=== PATIENT | female | born 1995 ===

== ENCOUNTER 2019-04-02 04:54 | Inpatient (IN) | payer BC ==
[2019-04-02] MEDS ORDERED: Tranexamic Acid 1,000 MG in Sodium Chloride 0.9% 100 ML IV PRN (19:36)
[2019-04-02] MEDS ORDERED: Sodium Chloride 0.9% 10 ML Syringe FLUSH PRN (19:36)
[2019-04-02] MEDS ORDERED: Terbutaline 1 MG/ML SDV SUBCUT PRN (19:36)
[2019-04-02] MEDS ORDERED: Methylergonovine 0.2 MG/1 ML Amp IM PRN (19:36)
[2019-04-02] MEDS ORDERED: Misoprostol 200 MCG Tab PO PRN (19:36)
[2019-04-02] MEDS ORDERED: Ondansetron 4 MG/2 ML SDV IV PRN (19:36)
[2019-04-02] MEDS ORDERED: Nalbuphine 10 MG/1 ML Vial IVPUSH PRN (19:36)
[2019-04-02] MEDS ORDERED: Water For Irrigation,Sterile 1,000 ML Container IRR PRN (19:36)
[2019-04-02] MEDS ORDERED: Sodium Chloride 0.9% 10 ML SDV IV PRN (19:36)
[2019-04-02] MEDS ORDERED: Lidocaine 1% 50 ML MDV INJECT PRN (19:36)
[2019-04-02] MEDS ORDERED: Carboprost Tromethamine 250 MCG/1 ML Amp IM PRN (19:36)
[2019-04-02] MEDS ORDERED: Oxytocin/0.9 % Sodium Chloride 30 UNIT/500 ML BAG IV SCH ×2 (19:45)
--- NOTE | 2019-04-02 20:45 | PCM.LDHP ---
L&D History of Present Illness - General Date of Service: 04/02/19 Admit Problem/Dx: Patient Status Order with Admit Dx/Problem 04/02/19 19:40 Patient Status [ADT] Routine Admission Diagnosis/Problem Admission Diagnosis/Problem -related examination 04/02/19 20:40 23yo EDC 03/24/2019 41 2/7wks, B+, RI, GBS neg, Active labor Source of Information: Patient History Limitations: Reports: No Limitations - History of Present Illness Timing/Duration: Reports: minutes: Location, : Reports: Abdomen, Lower back Quality: Reports: Pressure, Throbbing Severity: Moderate Improves with: Reports: None Worsens with: Reports: None Associated Symptoms: Reports: N - Related Data Allergies/Adverse Reactions: Allergies Allergy/AdvReac Type Severity Reaction Status Date / Time No Known Allergies Allergy Verified 04/02/19 12:23 Home Medications: Home Meds Tablet 1 tab PO DAILY 04/02/19 [History] H&P Review of Systems - Review of Systems: Review Of Systems: See Below General: Reports: No Symptoms HEENT: Reports: No Symptoms Pulmonary: Reports: No Symptoms Cardiovascular: Reports: No Symptoms Gastrointestinal: Reports: No Symptoms Genitourinary: Reports: No Symptoms Musculoskeletal: Reports: No Symptoms Skin: Reports: No Symptoms Psychiatric: Reports: No Symptoms Neurological: Reports: No Symptoms Hematologic/Lymphatic: Reports: No Symptoms Immunologic: Reports: No Symptoms L&D Exam - Exam Exam: See Below - Vital Signs Weight: 92.986 kg - OB Specific Contraction Intensity: Moderate Movement: Active Presentation: Vertex - Eduardo Score Eduardo Score Cervix Position: Midposition Eduardo Score Consistency: Medium Eduardo Score Effacement: >80% Eduardo Score Dilation: > 5 cm Eduardo Score 's Station: -2 Eduardo Score Total: 9 - Exam General: Alert, Oriented HEENT: Hearing Intact Lungs: Normal Respiratory Effort GI/Abdominal Exam: Soft, Non-Tender Rectal Exam: Deferred Genitourinary: Normal external exam, Normal speculum exam, Cervical dilitation Back Exam: Full Range of Motion Extremities: Normal Range of Motion, Non-Tender, No Pedal Edema Skin: Warm, Dry, Intact Neurological: Cranial Nerves Intact, Strength Equal Bilateral, Normal Gait, Normal Speech, Normal Tone, Sensation Intact Psychiatric: Alert, Normal Affect, Normal Mood - Patient Data Lab Results Last 24 hrs: Laboratory Results - last 24 hr 04/02/19 Range/Units 20:07 WBC 13.36 H (4.0-11.0) K/uL RBC 4.41 (4.30-5.90) M/uL Hgb 12.8 (12.0-16.0) g/dL Hct 38.6 (36.0-46.0) % MCV 87.5 (80.0-98.0) fL MCH 29.0 (27.0-32.0) pg MCHC 33.2 (31.0-37.0) g/dL RDW Std Deviation 46.3 (28.0-62.0) fl RDW Coeff of Layo 15 (11.0-15.0) % Plt Count 219 (150-400) K/uL MPV 11.80 (7.40-12.00) fL Nucleated RBC % 0.0 /100WBC Nucleated RBCs # 0 K/uL Result Diagrams: 04/02/19 20:07 - Problem List (1) Supervision of normal IUP (intrauterine ) in primigravida SNOMED Code(s): 81745986, 450143393, 562887871, 076354659 ICD Code: Z34.00 - ENCNTR FOR SUPRVSN OF NORMAL FIRST , UNSP TRIMESTER Status: Acute Priority: High Current Visit: Yes Qualifiers: Trimester: third trimester Qualified Code(s): Z34.03 - Encounter for supervision of normal first , third trimester (2) Post-dates SNOMED Code(s): 67013639 ICD Code: O48.0 - POST-TERM Status: Acute Priority: High Current Visit: Yes Problem List Initiated/Reviewed/Updated: Yes Orders Last 24hrs: Active Orders 24 hr Category Date Time Status Patient Status [ADT] Routine ADT 04/02/19 19:40 Active Bedrest Bathroom Privileges [RC] ASDIRECTED Care 04/02/19 19:40 Active Communication Order [RC] ASDIRECTED Care 04/02/19 19:40 Active Communication Order [RC] ASDIRECTED Care 04/02/19 19:40 Active Heart Tones [RC] CONTINUOUS Care 04/02/19 19:40 Active Non Stress Test [RC] PER UNIT ROUTINE Care 04/02/19 19:40 Active May Shower [RC] ASDIRECTED Care 04/02/19 19:40 Active Notify Provider [RC] PRN Care 04/02/19 19:40 Active Notify Provider [RC] PRN Care 04/02/19 19:40 Active Notify Provider [RC] STAT Care 04/02/19 19:40 Active Oxygen Therapy [RC] ASDIRECTED Care 04/02/19 19:40 Active Up ad Kayleigh [RC] ASDIRECTED Care 04/02/19 19:40 Active Vaginal Exam [RC] PRN Care 04/02/19 19:40 Active Vaginal Exam [RC] PRN Care 04/02/19 19:40 Active Vital Signs [RC] PER UNIT ROUTINE Care 04/02/19 19:40 Active Vital Signs [RC] PER UNIT ROUTINE Care 04/02/19 19:40 Active Regular Diet [DIET] Diet 04/03/19 Breakfast Active TYPE AND SCREEN [BBK] Routine Lab 04/02/19 20:07 Received Carboprost Tromethamine [Hemabate DS] Med 04/02/19 19:36 Active 250 mcg IM ASDIRECTED PRN Lactated Ringers [Ringers, Lactated] 1,000 ml Med 04/02/19 19:45 Active IV ASDIRECTED Lidocaine 1% [Xylocaine 1%] Med 04/02/19 19:36 Active 50 ml INJECT ONETIME PRN Methylergonovine [Methergine] Med 04/02/19 19:36 Active 0.2 mg IM ASDIRECTED PRN Nalbuphine [Nubain] Med 04/02/19 19:36 Active 10 mg IVPUSH ASDIRECTED PRN Ondansetron [Zofran] Med 04/02/19 19:36 Active 4 mg IV Q4H PRN Oxytocin/0.9 % Sodium Chloride [Oxytocin 30 Unit/500 ML Med 04/02/19 19:45 Active -NS] 30 unit in 500 ml IV TITRATE Oxytocin/0.9 % Sodium Chloride [Oxytocin 30 Unit/500 ML Med 04/02/19 19:45 Active -NS] 30 unit in 500 ml IV TITRATE Sodium Chloride 0.9% [Normal Saline] Med 04/02/19 19:36 Active 10 ml IV ASDIRECTED PRN Sodium Chloride 0.9% [Saline Flush] Med 04/02/19 19:36 Active 10 ml FLUSH ASDIRECTED PRN Terbutaline [Brethine] Med 04/02/19 19:36 Active 0.25 mg SUBCUT ASDIRECTED PRN Tranexamic Acid [Cyklokapron] 1,000 mg Med 04/02/19 19:36 Active Sodium Chloride 0.9% [Normal Saline] 100 ml IV ONETIME Water For Irrigation,Sterile [Sterile Water for Med 04/02/19 19:36 Active Irrigation] 1,000 ml IRR ASDIRECTED PRN miSOPROStol [Cytotec] Med 04/02/19 19:36 Active 200 mcg PO ONETIME PRN Scalp Electrode [WOMSER] Per Unit Routine Oth 04/02/19 19:40 Ordered Medication Administration Instruction [OM.PC] Q3H Oth 04/02/19 19:45 Ordered Peripheral IV Insertion Adult [OM.PC] Routine Oth 04/02/19 19:40 Ordered Resuscitation Status Routine Resus Stat 04/02/19 19:36 Ordered Medication Orders Carboprost Tromethamine (Hemabate Ds) 250 mcg IM ASDIRECTED PRN PRN Reason: Post Hemorrhage Lactated Ringer's (Ringers, Lactated) 1,000 mls @ 150 mls/hr IV ASDIRECTED MAGDALENA Oxytocin/Sodium Chloride (Oxytocin 30 Unit/500 Ml-Ns) 30 unit in 500 mls @ 999 mls/hr IV TITRATE MAGDALENA Oxytocin/Sodium Chloride (Oxytocin 30 Unit/500 Ml-Ns) 30 unit in 500 mls @ 2 mls/hr IV TITRATE MAGDALENA; Protocol Tranexamic Acid 1,000 mg/ (Sodium Chloride) 110 mls @ 660 mls/hr IV ONETIME PRN PRN Reason: Bleeding Lidocaine HCl (Xylocaine 1%) 50 ml INJECT ONETIME PRN PRN Reason: Laceration repair Methylergonovine Maleate (Methergine) 0.2 mg IM ASDIRECTED PRN PRN Reason: Post Hemorrhage Misoprostol (Cytotec) 200 mcg PO ONETIME PRN PRN Reason: Post Hemorrhage Nalbuphine HCl (Nubain) 10 mg IVPUSH ASDIRECTED PRN PRN Reason: Pain (severe 7-10) Ondansetron HCl (Zofran) 4 mg IV Q4H PRN PRN Reason: Nausea/Vomiting Sodium Chloride (Saline Flush) 10 ml FLUSH ASDIRECTED PRN PRN Reason: Keep Vein Open Sodium Chloride (Normal Saline) 10 ml IV ASDIRECTED PRN PRN Reason: IV Use Sterile Water (Sterile Water For Irrigation) 1,000 ml IRR ASDIRECTED PRN PRN Reason: delivery Terbutaline Sulfate (Brethine) 0.25 mg SUBCUT ASDIRECTED PRN PRN Reason: Tacysystole Assessment/Plan Comment:: Labor A: 23yo EDC 03/24/2019 41 2/7wks, B+, RI, GBS neg, Active labor P: Admit, epidural prn, anticipate . Dr Blue updated
[2019-04-02] MEDS: Lactated Ringers 1,000 ML IV SCH ×2 (22:00→23:02)
[2019-04-02] MEDS ORDERED: fentaNYL 100 MCG/2 ML SDV ONE (23:33)
--- NOTE | 2019-04-02 23:59 | PCM.PREANE ---
Preanesthetic Assessment - Anesthesia/Transfusion/Family Hx Anesthesia History: No Prior Anesthesia Family History of Anesthesia Reaction: No Transfusion History: Unknown Intubation History: Unknown - Review of Systems General: No Symptoms Pulmonary: No Symptoms Cardiovascular: No Symptoms Gastrointestinal: No Symptoms Neurological: No Symptoms Other: Reports: None - Physical Assessment Height: 5 ft 3 in Weight: 92.986 kg ASA Class: 2 Mental Status: Alert & Oriented x3 Airway Class: Mallampati = 2 Dentition: Reports: Normal Dentition Thyro-Mental Finger Breadths: 3 Mouth Opening Finger Breadths: 3 ROM/Head Extension: Full Lungs: Clear to Auscultation, Normal Respiratory Effort Cardiovascular: Regular Rate, Regular Rhythm - Lab Values: Laboratory Last Values WBC 13.36 K/uL (4.0-11.0) H 04/02/19 20:07 RBC 4.41 M/uL (4.30-5.90) 04/02/19 20:07 Hgb 12.8 g/dL (12.0-16.0) 04/02/19 20:07 Hct 38.6 % (36.0-46.0) 04/02/19 20:07 MCV 87.5 fL (80.0-98.0) 04/02/19 20:07 MCH 29.0 pg (27.0-32.0) 04/02/19 20:07 MCHC 33.2 g/dL (31.0-37.0) 04/02/19 20:07 RDW Std Deviation 46.3 fl (28.0-62.0) 04/02/19 20:07 RDW Coeff of Layo 15 % (11.0-15.0) 04/02/19 20:07 Plt Count 219 K/uL (150-400) 04/02/19 20:07 MPV 11.80 fL (7.40-12.00) 04/02/19 20:07 Nucleated RBC % 0.0 /100WBC 04/02/19 20:07 Nucleated RBCs # 0 K/uL 04/02/19 20:07 Blood Type B POSITIVE 04/02/19 20:07 Antibody Screen NEGATIVE 04/02/19 20:07 - Allergies Allergies/Adverse Reactions: Allergies Allergy/AdvReac Type Severity Reaction Status Date / Time No Known Allergies Allergy Verified 04/02/19 12:23 - Blood Blood Available: No - Anesthesia Plan Pre-Op Medication Ordered: None - Acknowledgements Anesthesia Type Planned: Epidural Pt an Appropriate Candidate for the Planned Anesthesia: Yes Alternatives and Risks of Anesthesia Discussed w Pt/Guardian: Yes Pt/Guardian Understands and Agrees with Anesthesia Plan: Yes PreAnesthesia Questionnaire - Past Health History Medical/Surgical History: Denies 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 USE Smoking Status *Q: Never Smoker Tobacco Use Within Last Twelve Months: No Second Hand Smoke Exposure: No Recreational Drug Use History: No - HOME MEDS Home Medications: Home Meds Tablet 1 tab PO DAILY 04/02/19 [History] - CURRENT (IN HOUSE) MEDS Current Meds: Current Medications Carboprost Tromethamine (Hemabate Ds) 250 mcg IM ASDIRECTED PRN PRN Reason: Post Hemorrhage Lactated Ringer's (Ringers, Lactated) 1,000 mls @ 150 mls/hr IV ASDIRECTED MAGDALENA Oxytocin/Sodium Chloride (Oxytocin 30 Unit/500 Ml-Ns) 30 unit in 500 mls @ 999 mls/hr IV TITRATE MAGDALENA Oxytocin/Sodium Chloride (Oxytocin 30 Unit/500 Ml-Ns) 30 unit in 500 mls @ 2 mls/hr IV TITRATE MAGDALENA; Protocol Tranexamic Acid 1,000 mg/ (Sodium Chloride) 110 mls @ 660 mls/hr IV ONETIME PRN PRN Reason: Bleeding Lidocaine HCl (Xylocaine 1%) 50 ml INJECT ONETIME PRN PRN Reason: Laceration repair Methylergonovine Maleate (Methergine) 0.2 mg IM ASDIRECTED PRN PRN Reason: Post Hemorrhage Misoprostol (Cytotec) 200 mcg PO ONETIME PRN PRN Reason: Post Hemorrhage Nalbuphine HCl (Nubain) 10 mg IVPUSH ASDIRECTED PRN PRN Reason: Pain (severe 7-10) Ondansetron HCl (Zofran) 4 mg IV Q4H PRN PRN Reason: Nausea/Vomiting Sodium Chloride (Saline Flush) 10 ml FLUSH ASDIRECTED PRN PRN Reason: Keep Vein Open Sodium Chloride (Normal Saline) 10 ml IV ASDIRECTED PRN PRN Reason: IV Use Sterile Water (Sterile Water For Irrigation) 1,000 ml IRR ASDIRECTED PRN PRN Reason: delivery Terbutaline Sulfate (Brethine) 0.25 mg SUBCUT ASDIRECTED PRN PRN Reason: Tacysystole Discontinued Medications Fentanyl (Sublimaze) Confirm Administered Dose 100 mcg .ROUTE .STK-MED ONE Stop: 04/02/19 23:34 Fentanyl/Bupivacaine HCl (Nooabqxx-Crjal-Ec 2 Mcg/Ml-0.125%) Confirm Administered Dose 100 mls @ as directed .ROUTE .STK-MED ONE Stop: 04/02/19 23:35
[2019-04-03] MEDS: Lactated Ringers 1,000 ML IV SCH (00:05)
--- NOTE | 2019-04-03 05:17 | PCM.DEL ---
L & D Note - General Info Date of Service: 04/03/19 Mother's Due Date: 03/24/19 - Delivery Note Labor: Spontaneous, Augmented by Oxytocin Delivery Outcome: Livebirth Infant Delivery Method: Spontaneous Vaginal Delivery-Single Infant Delivery Mode: Spontaneous Presentation: Vertex Nuchal Cord: Present Anesthesia Type: Epidural Amniotic Fluid Description: Meconium Stained Episiotomy Type: None Laceration: None Placenta: Intact, Spontaneous Cord: 3 Vessels Estimated Blood Loss: 250 Resuscitation Needed: No : Stimulated Score 1 min: 7 Score 5 min: 9 Second Stage Interventions: Reports: Pushing, Pulls Own Legs Back Delivery Comments (Free Text/Narrative):: of viable female, head delivered with good pushing, nuchal x1 reduced over head, shoulders and body followed easily. to mothers abd with stimulation spont cry. Pitocin to IVF, CC and cut. Cord blood collected. Placenta delivered grossly intact. Inspection noted intact perineum. EBL 250, APGARS 7/9 weight pending bonding. Mother and baby stable. Induction Criteria - Augmentation Estimated Pelvis: Reports: Adequate Weight Estimated:: Reports: AGA Reassuring Monitoring Strip: Yes Absence of Tachy Systole: Yes - General Info Date of Service: 04/03/19 Admission Dx/Problem (Free Text): Patient Status Order with Admit Dx/Problem 04/02/19 19:40 Patient Status [ADT] Routine Admission Diagnosis/Problem Admission Diagnosis/Problem -related examination 04/02/19 20:40 23yo EDC 03/24/2019 41 2/7wks, B+, RI, GBS neg, Active labor Functional Status: Reports: Pain Controlled - Review of Systems General: Reports: No Symptoms HEENT: Reports: No Symptoms Pulmonary: Reports: No Symptoms Cardiovascular: Reports: No Symptoms Gastrointestinal: Reports: No Symptoms Genitourinary: Reports: No Symptoms Musculoskeletal: Reports: No Symptoms Skin: Reports: No Symptoms Neurological: Reports: No Symptoms Psychiatric: Reports: No Symptoms - Patient Data Weight - Most Recent: 92.986 kg Lab Results Last 24 Hours: Laboratory Results - last 24 hr 04/02/19 04/02/19 Range/Units 20:07 20:07 WBC 13.36 H (4.0-11.0) K/uL RBC 4.41 (4.30-5.90) M/uL Hgb 12.8 (12.0-16.0) g/dL Hct 38.6 (36.0-46.0) % MCV 87.5 (80.0-98.0) fL MCH 29.0 (27.0-32.0) pg MCHC 33.2 (31.0-37.0) g/dL RDW Std Deviation 46.3 (28.0-62.0) fl RDW Coeff of Layo 15 (11.0-15.0) % Plt Count 219 (150-400) K/uL MPV 11.80 (7.40-12.00) fL Nucleated RBC % 0.0 /100WBC Nucleated RBCs # 0 K/uL Blood Type B POSITIVE Antibody Screen NEGATIVE Med Orders - Current: Current Medications Carboprost Tromethamine (Hemabate Ds) 250 mcg IM ASDIRECTED PRN PRN Reason: Post Hemorrhage Lactated Ringer's (Ringers, Lactated) 1,000 mls @ 150 mls/hr IV ASDIRECTED MAGDALENA Oxytocin/Sodium Chloride (Oxytocin 30 Unit/500 Ml-Ns) 30 unit in 500 mls @ 999 mls/hr IV TITRATE MAGDALENA Oxytocin/Sodium Chloride (Oxytocin 30 Unit/500 Ml-Ns) 30 unit in 500 mls @ 2 mls/hr IV TITRATE MAGDALENA; Protocol Tranexamic Acid 1,000 mg/ (Sodium Chloride) 110 mls @ 660 mls/hr IV ONETIME PRN PRN Reason: Bleeding Lidocaine HCl (Xylocaine 1%) 50 ml INJECT ONETIME PRN PRN Reason: Laceration repair Methylergonovine Maleate (Methergine) 0.2 mg IM ASDIRECTED PRN PRN Reason: Post Hemorrhage Misoprostol (Cytotec) 200 mcg PO ONETIME PRN PRN Reason: Post Hemorrhage Nalbuphine HCl (Nubain) 10 mg IVPUSH ASDIRECTED PRN PRN Reason: Pain (severe 7-10) Ondansetron HCl (Zofran) 4 mg IV Q4H PRN PRN Reason: Nausea/Vomiting Sodium Chloride (Saline Flush) 10 ml FLUSH ASDIRECTED PRN PRN Reason: Keep Vein Open Sodium Chloride (Normal Saline) 10 ml IV ASDIRECTED PRN PRN Reason: IV Use Sterile Water (Sterile Water For Irrigation) 1,000 ml IRR ASDIRECTED PRN PRN Reason: delivery Terbutaline Sulfate (Brethine) 0.25 mg SUBCUT ASDIRECTED PRN PRN Reason: Tacysystole Discontinued Medications Fentanyl (Sublimaze) Confirm Administered Dose 100 mcg .ROUTE .STK-MED ONE Stop: 04/02/19 23:34 Fentanyl/Bupivacaine HCl (Htgknzih-Libjp-Ex 2 Mcg/Ml-0.125%) Confirm Administered Dose 100 mls @ as directed .ROUTE .STK-MED ONE Stop: 04/02/19 23:35 - Exam General: Alert, Oriented Lungs: Normal Respiratory Effort GI/Abdominal Exam: Soft, Non-Tender (Female) Exam: Normal External Exam, Normal Bimanual Exam, Vaginal Bleeding. No: Vaginal Tears Back Exam: Normal Inspection Extremities: Normal Inspection, Non-Tender, Pedal Edema Skin: Warm, Dry, Intact Neurological: No New Focal Deficit, Normal Speech, Normal Tone, Strength Equal Bilateral Psy/Mental Status: Alert, Normal Affect, Normal Mood - Problem List & Annotations (1) Supervision of normal IUP (intrauterine ) in primigravida SNOMED Code(s): 75838843, 412480107, 209944244, 009991178 Code(s): Z34.00 - ENCNTR FOR SUPRVSN OF NORMAL FIRST , UNSP TRIMESTER Status: Acute Priority: High Current Visit: Yes Qualifiers: Trimester: third trimester Qualified Code(s): Z34.03 - Encounter for supervision of normal first , third trimester (2) Post-dates SNOMED Code(s): 14327931 Code(s): O48.0 - POST-TERM Status: Acute Priority: High Current Visit: Yes (3) (normal spontaneous vaginal delivery) SNOMED Code(s): 07987437, 236292608 Code(s): O80 - ENCOUNTER FOR FULL-TERM UNCOMPLICATED DELIVERY Status: Acute Priority: High Current Visit: Yes - Problem List Review Problem List Initiated/Reviewed/Updated: Yes - My Orders Last 24 Hours: My Active Orders 04/02/19 19:36 Carboprost Tromethamine [Hemabate DS] 250 mcg IM ASDIRECTED PRN Lidocaine 1% [Xylocaine 1%] 50 ml INJECT ONETIME PRN Methylergonovine [Methergine] 0.2 mg IM ASDIRECTED PRN Nalbuphine [Nubain] 10 mg IVPUSH ASDIRECTED PRN Ondansetron [Zofran] 4 mg IV Q4H PRN Sodium Chloride 0.9% [Normal Saline] 10 ml IV ASDIRECTED PRN Sodium Chloride 0.9% [Saline Flush] 10 ml FLUSH ASDIRECTED PRN Terbutaline [Brethine] 0.25 mg SUBCUT ASDIRECTED PRN Tranexamic Acid [Cyklokapron] 1,000 mg Sodium Chloride 0.9% [Normal Saline] 100 ml IV ONETIME Water For Irrigation,Sterile [Sterile Water for Irrigation] 1,000 ml IRR ASDIRECTED PRN miSOPROStol [Cytotec] 200 mcg PO ONETIME PRN Resuscitation Status Routine 04/02/19 19:40 Patient Status [ADT] Routine Bedrest Bathroom Privileges [RC] ASDIRECTED Communication Order [RC] ASDIRECTED Communication Order [RC] ASDIRECTED Heart Tones [RC] CONTINUOUS Non Stress Test [RC] PER UNIT ROUTINE May Shower [RC] ASDIRECTED Notify Provider [RC] PRN Notify Provider [RC] PRN Notify Provider [RC] STAT Oxygen Therapy [RC] ASDIRECTED Up ad Kayleigh [RC] ASDIRECTED Vaginal Exam [RC] PRN Vaginal Exam [RC] PRN Vital Signs [RC] PER UNIT ROUTINE Vital Signs [RC] PER UNIT ROUTINE Scalp Electrode [WOMSER] Per Unit Routine Peripheral IV Insertion Adult [OM.PC] Routine 04/02/19 19:45 Lactated Ringers [Ringers, Lactated] 1,000 ml IV ASDIRECTED Oxytocin/0.9 % Sodium Chloride [Oxytocin 30 Unit/500 ML-NS] 30 unit in 500 ml IV TITRATE Oxytocin/0.9 % Sodium Chloride [Oxytocin 30 Unit/500 ML-NS] 30 unit in 500 ml IV TITRATE Medication Administration Instruction [OM.PC] Q3H 04/03/19 Breakfast Regular Diet [DIET] - Plan Plan:: Labor A: 23yo EDC 03/24/2019 41 2/7wks, B+, RI, GBS neg, Active labor P: Admit, epidural prn, anticipate . Dr Blue updated Delivery A: of girl, APGARS 7/9, wt pending bonding. Intact perineum, EBL 250cc. Mother and baby bonding well both stable P: Routine pp plan of care.
[2019-04-03] MEDS ORDERED: Acetaminophen 500 MG Tab PO PRN (05:22)
[2019-04-03] MEDS ORDERED: Benzocaine/Menthol 20%-0.5% Spray 78 GM Cannister TOP PRN (05:22)
[2019-04-03] MEDS ORDERED: Witch Hazel Medicated Pads 40/Jar TOP PRN (05:22)
[2019-04-03] MEDS ORDERED: Ibuprofen 400 MG Tab PO PRN (05:22)
[2019-04-03] MEDS ORDERED: oxyCODONE 5 MG Tab PO PRN (05:22)
[2019-04-03] MEDS ORDERED: Bisacodyl 10 MG Supp RECTAL PRN (05:22)
[2019-04-03] MEDS ORDERED: Docusate Sodium 100 MG Cap PO PRN (05:22)
[2019-04-03] MEDS ORDERED: Lanolin 100% Cream 7 GM Tube TOP PRN (05:22)
--- NOTE | 2019-04-03 08:21 | PCM48HPAN ---
Post Anesthesia Note - EVALUATION WITHIN 48HRS OF ANESTHETIC Vital Signs in Normal Range: Yes Patient Participated in Evaluation: Yes Respiratory Function Stable: Yes Airway Patent: Yes Cardiovascular Function Stable: Yes Hydration Status Stable: Yes Pain Control Satisfactory: Yes Nausea and Vomiting Control Satisfactory: Yes Mental Status Recovered: Yes - COMMENTS/OBSERVATIONS Free Text/Narrative:: Patient doing well without complaints
[2019-04-03] MEDS: Ibuprofen 800 MG Tab PO PRN (15:15)
[2019-04-03] MEDS: Acetaminophen 500 MG Tab PO PRN (15:16)
[2019-04-04] MEDS: Ibuprofen 800 MG Tab PO PRN (07:40)
[2019-04-04] MEDS: Acetaminophen 500 MG Tab PO PRN (07:40)
--- NOTE | 2019-04-04 08:38 | PCM.DCSUM1 ---
Discharge Summary - Hospital Course Free Text/Narrative:: Discharge home with . Follow up in 6 weeks for visit. Diagnosis: Stroke: No - Discharge Data Discharge Date: 04/04/19 Discharge Disposition: Home, Self-Care 01 Condition: Good - Discharge Diagnosis/Problem(s) (1) Supervision of normal IUP (intrauterine ) in primigravida SNOMED Code(s): 10260109, 606916136, 179094958, 676446720 ICD Code: Z34.00 - ENCNTR FOR SUPRVSN OF NORMAL FIRST , UNSP TRIMESTER Status: Acute Priority: High Current Visit: Yes Qualifiers: Trimester: third trimester Qualified Code(s): Z34.03 - Encounter for supervision of normal first , third trimester (2) Post-dates SNOMED Code(s): 20716256 ICD Code: O48.0 - POST-TERM Status: Acute Priority: High Current Visit: Yes (3) (normal spontaneous vaginal delivery) SNOMED Code(s): 10186641, 517306420 ICD Code: O80 - ENCOUNTER FOR FULL-TERM UNCOMPLICATED DELIVERY Status: Acute Priority: High Current Visit: Yes - Patient Instructions Diet: Usual Diet as Tolerated Activity: As Tolerated Driving: May Drive Today Showering/Bathing: May Shower Notify Provider of: Fever, Increased Pain, Swelling and Redness, Nausea and/or Vomiting Other/Special Instructions: Discharge home with . Follow up in 6 weeks for visit. - Discharge Plan *PRESCRIPTION DRUG MONITORING PROGRAM REVIEWED*: Not Applicable *COPY OF PRESCRIPTION DRUG MONITORING REPORT IN PATIENT NILES: Not Applicable Prescriptions/Med Rec: Ibuprofen [Motrin] 800 mg PO Q6H PRN #90 tablet PRN Reason: Pain Home Medications: Home Meds Tablet 1 tab PO DAILY 04/02/19 [History] Ibuprofen [Motrin] 800 mg PO Q6H PRN #90 tablet 04/04/19 [Rx] Oxygen Therapy Mode: Room Air Referrals: [facility] [Outside] Caitlyn Duran CNM [Mid-] - 05/14/19 10:45 am - Discharge Summary/Plan Comment DC Time >30 min.: Yes - General Info Date of Service: 04/04/19 Admission Dx/Problem (Free Text: Patient Status Order with Admit Dx/Problem 04/02/19 19:40 Patient Status [ADT] Routine Admission Diagnosis/Problem Admission Diagnosis/Problem -related examination 04/02/19 20:40 23yo EDC 03/24/2019 41 2/7wks, B+, RI, GBS neg, Active labor Functional Status: Reports: Pain Controlled, Tolerating Diet, Ambulating, Urinating - Review of Systems General: Reports: No Symptoms HEENT: Reports: No Symptoms Pulmonary: Reports: No Symptoms Cardiovascular: Reports: No Symptoms Gastrointestinal: Reports: No Symptoms Genitourinary: Reports: No Symptoms Musculoskeletal: Reports: No Symptoms Skin: Reports: No Symptoms Neurological: Reports: No Symptoms Psychiatric: Reports: No Symptoms - Patient Data Vitals - Most Recent: Last Vital Signs Temp 37.2 C 04/04/19 07:15 Pulse 78 04/04/19 07:15 Resp 16 04/04/19 07:15 BP 97/58 L 04/04/19 07:15 Pulse Ox 96 04/04/19 07:15 Weight - Most Recent: 92.986 kg Med Orders - Current: Current Medications Acetaminophen (Tylenol Extra Strength) 500 mg PO Q4H PRN PRN Reason: Pain Acetaminophen (Tylenol Extra Strength) 1,000 mg PO Q4H PRN PRN Reason: Pain Last Admin: 04/04/19 07:40 Dose: 1,000 mg Benzocaine/Menthol (Dermoplast Pain Relief 20%-0.5% [place]) 78 gm TOP ASDIRECTED PRN PRN Reason: Perineal Comfort Measure Last Admin: 04/03/19 06:56 Dose: 1 canister Bisacodyl (Dulcolax) 10 mg RECTAL ONETIME PRN PRN Reason: Constipation Docusate Sodium (Colace) 100 mg PO BID PRN PRN Reason: Constipation Emollient Ointment (Lansinoh Hpa) 0 gm TOP ASDIRECTED PRN PRN Reason: Sore Nipples Last Admin: 04/03/19 06:55 Dose: 7 gm Ibuprofen (Motrin) 400 mg PO Q4H PRN PRN Reason: Pain Ibuprofen (Motrin) 800 mg PO Q6H PRN PRN Reason: Pain Last Admin: 04/04/19 07:40 Dose: 800 mg Oxycodone HCl (Oxycodone) 5 mg PO Q2H PRN PRN Reason: Pain Witch Marcy (Tucks) 1 pad TOP ASDIRECTED PRN PRN Reason: comfort care Last Admin: 04/03/19 06:55 Dose: 1 tub Discontinued Medications Carboprost Tromethamine (Hemabate Ds) 250 mcg IM ASDIRECTED PRN PRN Reason: Post Hemorrhage Fentanyl (Sublimaze) Confirm Administered Dose 100 mcg .ROUTE .[employer]-REES46 ONE Stop: 04/02/19 23:34 Lactated Ringer's (Ringers, Lactated) 1,000 mls @ 150 mls/hr IV ASDIRECTED [facility] Last Admin: 04/03/19 00:05 Dose: 150 mls/hr Oxytocin/Sodium Chloride (Oxytocin 30 Unit/500 Ml-Ns) 30 unit in 500 mls @ 999 mls/hr IV TITRATE [facility] Oxytocin/Sodium Chloride (Oxytocin 30 Unit/500 Ml-Ns) 30 unit in 500 mls @ 2 mls/hr IV TITRATE [facility]; Protocol Last Titration: 04/03/19 04:55 Dose: 999 munits/min, 999 mls/hr Tranexamic Acid 1,000 mg/ (Sodium Chloride) 110 mls @ 660 mls/hr IV ONETIME PRN PRN Reason: Bleeding Fentanyl/Bupivacaine HCl (Xhelqolh-Nkrfy-Ts 2 Mcg/Ml-0.125%) Confirm Administered Dose 100 mls @ as directed .ROUTE .[employer] ONE Stop: 04/02/19 23:35 Lidocaine HCl (Xylocaine 1%) 50 ml INJECT ONETIME PRN PRN Reason: Laceration repair Methylergonovine Maleate (Methergine) 0.2 mg IM ASDIRECTED PRN PRN Reason: Post Hemorrhage Misoprostol (Cytotec) 200 mcg PO ONETIME PRN PRN Reason: Post Hemorrhage Nalbuphine HCl (Nubain) 10 mg IVPUSH ASDIRECTED PRN PRN Reason: Pain (severe 7-10) Ondansetron HCl (Zofran) 4 mg IV Q4H PRN PRN Reason: Nausea/Vomiting Sodium Chloride (Saline Flush) 10 ml FLUSH ASDIRECTED PRN PRN Reason: Keep Vein Open Sodium Chloride (Normal Saline) 10 ml IV ASDIRECTED PRN PRN Reason: IV Use Sterile Water (Sterile Water For Irrigation) 1,000 ml IRR ASDIRECTED PRN PRN Reason: delivery Terbutaline Sulfate (Brethine) 0.25 mg SUBCUT ASDIRECTED PRN PRN Reason: Tacysystole - Exam General: Reports: Alert, Oriented, Cooperative, No Acute Distress, Mild Distress Lungs: Reports: Clear to Auscultation, Normal Respiratory Effort. Denies: Decreased Breath Sounds Cardiovascular: Reports: Regular Rate, Regular Rhythm. Denies: No Murmurs GI/Abdominal Exam: Soft, Non-Tender, No Distention, Pelvis Stable (Female) Exam: Deferred Rectal (Female) Exam: Deferred Back Exam: Reports: Normal Inspection, Full Range of Motion Extremities: Normal Inspection, Normal Range of Motion, Non-Tender, No Pedal Edema Skin: Reports: Warm, Dry, Intact Neurological: Reports: No New Focal Deficit, Normal Speech, Normal Tone, Strength Equal Bilateral Psy/Mental Status: Reports: Alert, Normal Affect, Normal Mood
== END 2019-04-04 14:00 | disposition home or self-care (01) | DRG 560 ==
LOC: MW.OB 04:54 → OBSVTOIN 04-03 04:54 → MW.OB 04-03 13:47
PROVIDERS: ADMIT Obstetrics & Gynecology; ATTEND Obstetrics & Gynecology
PROC: 10E0XZZ Delivery of Products of Conception, External Approach (ICD-10-PCS; principal; 2019-04-03)
DX: O48.0 Post-term pregnancy (principal); O77.0 Labor and delivery complicated by meconium in amniotic fluid; O69.81X0 Labor and delivery complicated by cord around neck, without compression, not applicable or unspecified; Z3A.41 41 weeks gestation of pregnancy; Z37.0 Single live birth
CPT/HCPCS: 36415; 51702; 59025; 59409; 85027; 86850; 86900; 86901; A9270-GY; J2590; J7120

== ENCOUNTER 2021-07-26 15:54 | Inpatient (IN) | payer BC ==
[2021-07-26] MEDS ORDERED: Water For Irrigation,Sterile 1,000 ML Container IRR PRN (16:44)
[2021-07-26] MEDS ORDERED: Carboprost Tromethamine 250 MCG/1 ML Amp IM PRN (16:44)
[2021-07-26] MEDS ORDERED: Butorphanol 1 MG/ML SDV IVPUSH PRN (16:44)
[2021-07-26] MEDS ORDERED: Ondansetron 4 MG/2 ML SDV IVPUSH PRN (16:44)
[2021-07-26] MEDS ORDERED: Sodium Chloride 0.9% 10 ML SDV IV PRN (16:44)
[2021-07-26] MEDS ORDERED: Methylergonovine 0.2 MG/1 ML Amp IM PRN (16:44)
[2021-07-26] MEDS ORDERED: Misoprostol 200 MCG Tab PO PRN (16:44)
[2021-07-26] MEDS ORDERED: Sodium Chloride 0.9% 10 ML Syringe FLUSH PRN (16:44)
[2021-07-26] MEDS ORDERED: Tranexamic Acid 1,000 MG in Sodium Chloride 0.9% 100 ML IV PRN (16:44)
[2021-07-26] MEDS ORDERED: Sodium Chloride 0.9% 2.5 ML Syringe FLUSH PRN (16:44)
[2021-07-26] MEDS ORDERED: Lidocaine 1% 50 ML MDV INJECT PRN (16:44)
[2021-07-26] MEDS ORDERED: Oxytocin/0.9 % Sodium Chloride 30 UNIT/500 ML BAG IV SCH (16:45)
[2021-07-26] MEDS: Lactated Ringers 1,000 ML IV SCH (18:14)
[2021-07-27] MEDS ORDERED: Ropivacaine HCl/PF 200 ML ONE (00:26)
[2021-07-27] MEDS: Lactated Ringers 1,000 ML IV SCH (01:00)
--- NOTE | 2021-07-27 01:00 | PCM.POSTAN ---
POST ANESTHESIA ASSESSMENT - MENTAL STATUS Mental Status: Alert, Oriented - RESPIRATORY Respiratory Status: Respiratory Rate WNL, Airway Patent, O2 Saturation Stable - CARDIOVASCULAR CV Status: Pulse Rate WNL, Blood Pressure Stable - GASTROINTESTINAL GI Status: No Symptoms - POST OP HYDRATION Hydration Status: Adequate & Stable
--- NOTE | 2021-07-27 01:00 | PCM.PREANE ---
Preanesthetic Assessment - Anesthesia/Transfusion/Family Hx Anesthesia History: Prior Anesthesia Reaction Other Type of Anesthesia Reaction Comment: bradycardia Family History of Anesthesia Reaction: No Transfusion History: No Prior Transfusion(s) Intubation History: Unknown - Review of Systems General: No Symptoms Pulmonary: No Symptoms Cardiovascular: No Symptoms Gastrointestinal: No Symptoms Neurological: No Symptoms Other: Reports: None - Physical Assessment Height: 5 ft 3 in Weight: 180 lb ASA Class: 2 Mental Status: Alert & Oriented x3 Dentition: Reports: Normal Dentition ROM/Head Extension: Full Lungs: Clear to Auscultation, Normal Respiratory Effort Cardiovascular: Regular Rate, Regular Rhythm - Lab Values: Laboratory Last Values WBC 10.25 K/uL (4.0-11.0) 07/26/21 17:32 RBC 4.31 M/uL (4.30-5.90) 07/26/21 17:32 Hgb 12.7 g/dL (12.0-16.0) 07/26/21 17:32 Hct 37.5 % (36.0-46.0) 07/26/21 17:32 MCV 87.0 fL (80.0-98.0) 07/26/21 17:32 MCH 29.5 pg (27.0-32.0) 07/26/21 17:32 MCHC 33.9 g/dL (31.0-37.0) 07/26/21 17:32 RDW Std Deviation 45.8 fl (28.0-62.0) 07/26/21 17:32 RDW Coeff of Layo 15 % (11.0-15.0) 07/26/21 17:32 Plt Count 207 K/uL (150-400) 07/26/21 17:32 MPV 11.70 fL (7.40-12.00) 07/26/21 17:32 Nucleated RBC % 0.0 /100WBC 07/26/21 17:32 Nucleated RBCs # 0 K/uL 07/26/21 17:32 SARS-CoV-2 RNA (EDILMA) NEGATIVE (NEGATIVE) 07/26/21 17:15 Blood Type B POSITIVE 07/26/21 17:32 Antibody Screen NEGATIVE 07/26/21 17:32 - Allergies Allergies/Adverse Reactions: Allergies Allergy/AdvReac Type Severity Reaction Status Date / Time No Known Allergies Allergy Verified 04/02/19 12:23 - Blood Blood Available: Yes Product(s) Available: PRBC, FFP, Platelets - Anesthesia Plan Pre-Op Medication Ordered: None - Acknowledgements Anesthesia Type Planned: Epidural Pt an Appropriate Candidate for the Planned Anesthesia: Yes Alternatives and Risks of Anesthesia Discussed w Pt/Guardian: Yes Pt/Guardian Understands and Agrees with Anesthesia Plan: Yes PreAnesthesia Questionnaire - Past Health History Medical/Surgical History: Denies Medical/Surgical History [employer] History: Reports: - SUBSTANCE USE Tobacco Use Status *Q: Never Tobacco User Tobacco Use Within Last Twelve Months: No Recreational Drug Use History: No - HOME MEDS Home Medications: Home Meds Tablet 1 tab PO DAILY 04/02/19 [History] Ibuprofen [Motrin] 800 mg PO Q6H PRN #90 tablet 04/04/19 [Rx] - CURRENT (IN HOUSE) MEDS Current Meds: Current Medications Butorphanol Tartrate (Butorphanol 1 Mg/Ml Sdv) 1 mg IVPUSH Q1H PRN PRN Reason: Pain (severe 7-10) Carboprost Tromethamine (Carboprost Tromethamine 250 Mcg/1 Ml Amp) 250 mcg IM ASDIRECTED PRN PRN Reason: Post Hemorrhage Lactated Ringer's (Ringers, Lactated) 1,000 mls @ 150 mls/hr IV ASDIRECTED [facility] Last Admin: 07/26/21 18:14 Dose: 150 mls/hr Documented by: Oxytocin/Sodium Chloride (Oxytocin 30 Unit In Ns 0.9% 500 Ml Premix) 30 unit in 500 mls @ 999 mls/hr IV TITRATE [facility] Tranexamic Acid 1,000 mg/ (Sodium Chloride) 110 mls @ 660 mls/hr IV ONETIME PRN PRN Reason: Bleeding Lidocaine HCl (Lidocaine 1% 50 Ml Mdv) 50 ml INJECT ONETIME PRN PRN Reason: Laceration repair Methylergonovine Maleate (Methylergonovine 0.2 Mg/1 Ml Amp) 0.2 mg IM ASDIRECTED PRN PRN Reason: Post Hemorrhage Misoprostol (Misoprostol 200 Mcg Tab) 200 mcg PO ONETIME PRN PRN Reason: Post Hemorrhage Ondansetron HCl (Ondansetron 4 Mg/2 Ml Sdv) 4 mg IVPUSH Q6H PRN PRN Reason: Nausea/Vomiting Sodium Chloride (Sodium Chloride 0.9% 10 Ml Syringe) 10 ml FLUSH ASDIRECTED PRN PRN Reason: Keep Vein Open Sodium Chloride (Sodium Chloride 0.9% 2.5 Ml Syringe) 2.5 ml FLUSH ASDIRECTED PRN PRN Reason: Keep Vein Open Sodium Chloride (Sodium Chloride 0.9% 10 Ml Sdv) 10 ml IV ASDIRECTED PRN PRN Reason: IV Use Sterile Water (Water For Irrigation,Sterile 1,000 Ml Container) 1,000 ml IRR ASDIRECTED PRN PRN Reason: delivery Discontinued Medications Ropivacaine (Naropin 0.2%) Confirm Administered Dose 200 mls @ as directed .ROUTE .[facility]-MED ONE Stop: 07/27/21 00:27 - Pre-Procedure Checklist Attending Provider Aware: Yes Chart Reviewed: Yes Consent Signed: Yes Labs Reviewed: Yes VS/FHR Reviewed: Yes Patient Identification Confirmation Method: Reports: Verbal Patient Pt an Appropriate Candidate for the Planned Anesthesia: Yes Alternatives and Risks of Anesthesia Discussed w Pt/Guardian: Yes - Procedure Procedure Start Date: 07/27/21 Procedure Start Time: 00:[address]: Reports: Blood Pressure, Heart Rate, SPO2 Functional IV: Yes Safety Measures: Reports: Patient Identified, Procedure Verified, Site Verified, Procedure Time Out Patient Position: Reports: Sitting Prep: Reports: Betadine x3, Sterile Drape Local Anesthetic: Reports: Intradermal Wheal w Lidocaine 1% Regional Placement Level: Reports: L3-4 Needle: Reports: 17 g Touhy Approach: Reports: Midline Technique: Reports: CONG Plastic Syringe Parasthesia: Reports: None Fluid Obtained: Reports: None Test Dose Time: 00:39 Test Dose Medication: Reports: Lidocaine 1.5% w Epinephrine 1:200,000 Test Dose Response: Reports: Negative Loading Dose Time: 00:39 Loading Dose Medication: bupivicaine 0.25% 10cc Loading Dose Patient Position: sitting Continuous Infusion Start Time: 00:40 Continuous Infusion Medication: ropivicaine 0.2% Continuous Infusion Rate: 16 Continuous Infusion PCS Bolus Option: 4 Patient Position Post Placement: Reports: Supline/TRAVIS VS and FHR Monitored in Unit Post Placement: Yes Procedure End Date: 07/27/21 Procedure End Time: 01:32
[2021-07-27] MEDS ORDERED: Acetaminophen 500 MG Tab PO PRN ×2 (07:07)
[2021-07-27] MEDS ORDERED: Lanolin 100% Cream 7 GM Tube TOP PRN (07:07)
[2021-07-27] MEDS ORDERED: Ibuprofen 400 MG Tab PO PRN (07:07)
[2021-07-27] MEDS ORDERED: oxyCODONE 5 MG Tab PO PRN (07:07)
[2021-07-27] MEDS ORDERED: Bisacodyl 10 MG Supp RECTAL PRN (07:07)
[2021-07-27] MEDS ORDERED: Docusate Sodium 100 MG Cap PO PRN (07:07)
--- NOTE | 2021-07-27 07:14 | PCM.OPNOTE ---
- General Post-Op/Procedure Note Date of Surgery/Procedure: 07/27/21 Operative Procedure(s): /IP Findings: Viable male APGARs 8, 9 weight pending. Spontaneous delivery intact placenta with 3 V cord Pre Op Diagnosis: 41 week IUP. Labor Post-Op Diagnosis: Same Anesthesia Technique: Epidural Primary Surgeon: Kathy Ortega EBL in mLs: 250 Complications: none known Condition: Good Free Text/Narrative:: Dictation [id number]
--- NOTE | 2021-07-27 08:00 | OR ---
SURGEON: Kathy Ortega M.D. DATE OF PROCEDURE: 07/27/2021 PREOPERATIVE DIAGNOSES: 1. A 41-week intrauterine . 2. Active labor. POSTOPERATIVE DIAGNOSES: 1. A 41-week intrauterine . 2. Active labor. PROCEDURE: Spontaneous vaginal delivery, intact perineum. ANESTHESIA: Epidural. ESTIMATED BLOOD LOSS: 250 mL. COMPLICATIONS: None known. FINDINGS: Viable male, score 8 at 1 minute and 9 at 5 minute. Weight is pending. Spontaneous delivery, intact placenta, 3-vessel cord. DISPOSITION: to nursery, mom in LDRP. PROCEDURE IN DETAIL: The patient is a 26-year-old, G2, P1, at 40 and 6-week gestational age, who presented on the evening of 07/26/2021 with contractions. On initial examination, she was found to be 3 to 4 cm, 60% effaced, -3 station. She was admitted by Dr. Dueñas and I assumed care for the evening shortly after 5 p.m. heart tones were category 1. The patient was monitored, offered amniotomy. She declined this. Continue to contract the evening hours and minimal cervical change until approximately midnight and then began progressing into active labor. She had spontaneous rupture of membranes when she was 6 cm. Clear fluid was noted. She underwent regional anesthesia in the form of epidural, became more comfortable, and progressed to complete. She began pushing efforts, pushed readily to a + station was called for delivery. Upon my arrival, the patient was placed in modified dorsal lithotomy position, prepped and draped in the usual aseptic manner. Continued with pushing efforts, was able to deliver infant's head atraumatically spontaneously, followed by anterior shoulder posterior shoulder, and remainder of the body without difficulty. There was light meconium amniotic fluid noted. The 's oropharynx and nares were bulb suctioned. Infant was handed off to his mother attending nursery staff at the side. After a delay, cord was clamped x2 and cut. Cord arterial, cord venous, and cord blood sampling were obtained. Light pressure was applied while the placenta was delivered spontaneously intact. Vigorous fundal and uterine massage was then applied with 30 units of Pitocin and it was delivered with 500 mL of IV fluid. Upon inspection of the cervix, vaginal sidewall, and perineum, these were found to be intact. Uterus remained firm. Sponge count and instrument count were correct. The patient remained in LDRP and infant to nursery. LETICIA / RUDOLPH /[id number]
[2021-07-27] MEDS: Benzocaine/Menthol 20%-0.5% Spray 78 GM Cannister TOP PRN (11:12)
[2021-07-27] MEDS: Witch Hazel Medicated Pads 40/Jar TOP PRN (11:13)
[2021-07-27] MEDS: Ibuprofen 800 MG Tab PO PRN (11:14)
[2021-07-28] MEDS: Ibuprofen 800 MG Tab PO PRN (02:00)
--- NOTE | 2021-07-28 08:28 | PCM.PNPP ---
- General Info Date of Service: 07/28/21 Subjective Update: Minimal-moderate lochia, cramping with . Denies fevers/chills. Functional Status: Reports: Pain Controlled, Tolerating Diet, Ambulating, Urinating - Review of Systems General: Reports: No Symptoms HEENT: Reports: No Symptoms Pulmonary: Reports: No Symptoms Cardiovascular: Reports: No Symptoms Gastrointestinal: Reports: No Symptoms Genitourinary: Reports: No Symptoms Musculoskeletal: Reports: No Symptoms Skin: Reports: No Symptoms Neurological: Reports: No Symptoms Psychiatric: Reports: No Symptoms - Patient Data Vital Signs - Most Recent: Last Vital Signs Temp 36.7 C 07/28/21 08:00 Pulse 78 07/28/21 08:00 Resp 18 07/28/21 08:00 BP 103/56 L 07/28/21 08:00 Pulse Ox 97 07/28/21 08:00 Weight - Most Recent: 81.647 kg Lab Results - Last 24 Hours: Laboratory Results - last 24 hr 07/27/21 07/28/21 Range/Units 06:48 05:28 Hgb 11.2 L (12.0-16.0) g/dL Hct 34.2 L (36.0-46.0) % Cord ABG pH 7.284 (7.18-7.38) Cord ABG Base Excess -2 (-10--2) Med Orders - Current: Current Medications Acetaminophen (Acetaminophen 500 Mg Tab) 500 mg PO Q4H PRN PRN Reason: Pain (mild 1-3) Acetaminophen (Acetaminophen 500 Mg Tab) 1,000 mg PO Q4H PRN PRN Reason: Pain (mild 1-3) Last Admin: 07/27/21 16:45 Dose: 1,000 mg Documented by: Benzocaine/Menthol (Benzocaine/Menthol 20%-0.5% [place] 78 Gm Cannister) 78 gm TOP ASDIRECTED PRN PRN Reason: Perineal Comfort Measure Last Admin: 07/27/21 11:12 Dose: 1 canister Documented by: Bisacodyl (Bisacodyl 10 Mg Supp) 10 mg RECTAL ONETIME PRN PRN Reason: Constipation Docusate Sodium (Docusate Sodium 100 Mg Cap) 100 mg PO Q12H PRN PRN Reason: Constipation Last Admin: 07/27/21 11:14 Dose: 100 mg Documented by: Emollient Ointment (Lanolin 100% Cream 7 Gm Tube) 0 gm TOP ASDIRECTED PRN PRN Reason: Sore Nipples Last Admin: 07/27/21 11:15 Dose: 1 tube Documented by: Lactated Ringer's (Ringers, Lactated) 1,000 mls @ 150 mls/hr IV ASDIRECTED [facility] Last Admin: 07/27/21 01:00 Dose: 150 mls/hr Documented by: Oxytocin/Sodium Chloride (Oxytocin 30 Unit In Ns 0.9% 500 Ml Premix) 30 unit in 500 mls @ 999 mls/hr IV TITRATE [facility] Last Admin: 07/27/21 06:50 Dose: 500 mls/hr Documented by: Tranexamic Acid 1,000 mg/ (Sodium Chloride) 110 mls @ 660 mls/hr IV ONETIME PRN PRN Reason: Bleeding Ibuprofen (Ibuprofen 400 Mg Tab) 400 mg PO Q4H PRN PRN Reason: Pain (mild 1-3) Ibuprofen (Ibuprofen 800 Mg Tab) 800 mg PO Q6H PRN PRN Reason: Cramping Last Admin: 07/28/21 02:00 Dose: 800 mg Documented by: Methylergonovine Maleate (Methylergonovine 0.2 Mg/1 Ml Amp) 0.2 mg IM ASDIRECTED PRN PRN Reason: Post Hemorrhage Ondansetron HCl (Ondansetron 4 Mg/2 Ml Sdv) 4 mg IVPUSH Q6H PRN PRN Reason: Nausea/Vomiting Oxycodone HCl (Oxycodone 5 Mg Tab) 5 mg PO Q2H PRN PRN Reason: Pain (severe 7-10) Sodium Chloride (Sodium Chloride 0.9% 10 Ml Syringe) 10 ml FLUSH ASDIRECTED PRN PRN Reason: Keep Vein Open Sodium Chloride (Sodium Chloride 0.9% 2.5 Ml Syringe) 2.5 ml FLUSH ASDIRECTED PRN PRN Reason: Keep Vein Open Sodium Chloride (Sodium Chloride 0.9% 10 Ml Sdv) 10 ml IV ASDIRECTED PRN PRN Reason: IV Use Sterile Water (Water For Irrigation,Sterile 1,000 Ml Container) 1,000 ml IRR ASDIRECTED PRN PRN Reason: delivery Witch Marcy (Witch Marcy Medicated Pads 40/Jar) 1 pad TOP ASDIRECTED PRN PRN Reason: comfort care Last Admin: 07/27/21 11:13 Dose: 1 tub Documented by: Discontinued Medications Butorphanol Tartrate (Butorphanol 1 Mg/Ml Sdv) 1 mg IVPUSH Q1H PRN PRN Reason: Pain (severe 7-10) Carboprost Tromethamine (Carboprost Tromethamine 250 Mcg/1 Ml Amp) 250 mcg IM ASDIRECTED PRN PRN Reason: Post Hemorrhage Ropivacaine (Naropin 0.2%) Confirm Administered Dose 200 mls @ as directed .ROUTE .STK-MED ONE Stop: 07/27/21 00:27 Lidocaine HCl (Lidocaine 1% 50 Ml Mdv) 50 ml INJECT ONETIME PRN PRN Reason: Laceration repair Misoprostol (Misoprostol 200 Mcg Tab) 200 mcg PO ONETIME PRN PRN Reason: Post Hemorrhage - Interaction Infant Disposition, : [place] to Nursery Infant Feeding: Breastfed Infant; Nursed Well Support Person: - Recovery Exam Fundal Tone: Firm Fundal Level: 1 Fingerbreadths Below Umbilicus Fundal Placement: Midline Lochia Amount: Scant Lochia Color: Rubra/Red Bladder Status: Voiding Urinary Elimination: Voided - Exam General: Alert, Oriented Neck: Supple Lungs: Normal Respiratory Effort GI/Abdominal Exam: Soft, Non-Tender, No Distention Extremities: Non-Tender, No Pedal Edema Skin: Warm, Dry, Intact Neurological: No New Focal Deficit Psy/Mental Status: Alert, Normal Affect, Normal Mood - Problem List & Annotations (1) (normal spontaneous vaginal delivery) SNOMED Code(s): 57210734, [id number] Code(s): O80 - ENCOUNTER FOR FULL-TERM UNCOMPLICATED DELIVERY Status: Acute Priority: High Current Visit: No - Problem List Review Problem List Initiated/Reviewed/Updated: Yes - My Orders Last 24 Hours: My Active Orders 07/28/21 08:26 Ready for Discharge [RC] PER UNIT ROUTINE - Assessment Assessment:: 26yo P2 s/p at 41w0d, PPD#1 - Plan Plan:: Continue routine care. Plan for discharge home today, reviewed discharge instructions/precautions. All questions answered. Rh positive, Rubella immune, GBS negative.
[2021-07-28] MEDS: Witch Hazel Medicated Pads 40/Jar TOP PRN (08:43)
[2021-07-28] MEDS: Benzocaine/Menthol 20%-0.5% Spray 78 GM Cannister TOP PRN (08:44)
--- NOTE | 2021-07-28 14:39 | PCM48HPAN ---
Post Anesthesia Note - EVALUATION WITHIN 48HRS OF ANESTHETIC Vital Signs in Normal Range: Yes Patient Participated in Evaluation: Yes Respiratory Function Stable: Yes Airway Patent: Yes Cardiovascular Function Stable: Yes Hydration Status Stable: Yes Pain Control Satisfactory: Yes Nausea and Vomiting Control Satisfactory: Yes Mental Status Recovered: Yes Vital Signs: Last Vital Signs Temp 98.0 F 07/28/21 08:00 Pulse 78 07/28/21 08:00 Resp 18 07/28/21 08:00 BP 103/56 L 07/28/21 08:00 Pulse Ox 97 07/28/21 08:00
== END 2021-07-28 13:05 | disposition home or self-care (01) | DRG 560 ==
LOC: MW.OBCHECK 15:54 → MW.OB 16:04 → MW.OBCHECK 16:44 → MW.OB 16:44 → OBSVTOIN 07-27 06:48 → MW.OB 07-27 14:12
PROVIDERS: ADMIT Obstetrics & Gynecology; ATTEND Obstetrics & Gynecology
PROC: 10E0XZZ Delivery of Products of Conception, External Approach (ICD-10-PCS; principal; 2021-07-27)
PROC: 3E0R3BZ Introduction of Anesthetic Agent into Spinal Canal, Percutaneous Approach (ICD-10-PCS; 2021-07-27)
DX: O48.0 Post-term pregnancy (principal); Z37.0 Single live birth; Z3A.41 41 weeks gestation of pregnancy; Z20.822 Contact with and (suspected) exposure to COVID-19
CPT/HCPCS: 01967; 36415; 51702; 59025; 59409; 82803; 85014; 85018; 85027; 86592; 86850; 86900; 86901; A9270-GY; J2590; J2795; J7120; U0002